=== PATIENT | male | born 1980 | race Caucasian/White ===

== ENCOUNTER 2017-07-13 02:43 | Inpatient (IN) | payer MEDICAID ==
[~2017-07-13] VITALS: Ht 165.1 cm; Wt 103.0 kg
[2017-07-13 04:28] LABS: CALCIUM 8.7 mg/dL (8.5-10.1); CARBON DIOXIDE 27.2 mmol/L (21-32); CHLORIDE SERUM 105 mmol/L (98-107); CREATININE SERUM 1.1 mg/dL (0.7-1.3); GFR1 > 60 mL/min; GLUCOSE SERUM 120 mg/dL (74-106); POTASSIUM SERUM 4.2 mmol/L (3.5-5.1); SODIUM SERUM 139 mmol/L (136-145)
[2017-07-13 04:32] LABS: BASOPHIL % 0.2 % (0-2); PLATELET COUNT 232 x10^3mcL (130-400)
[2017-07-13 06:06] LABS: T3 TOTAL 1.47 ng/mL
[2017-07-13 06:10] LABS: CHOLESTEROL/HDL RATIO 5.3; MAGNESIUM 2.1 mg/dL (1.8-2.4); PHOSPHOROUS 5.1 mg/dL (2.5-4.9)
[2017-07-13 06:46] VITALS: BP 141/91
[2017-07-13 07:10] LABS: FREE T4 1.1 ng/dL (0.76-1.46); FREE THYROXINE INDEX 2.9 ug/dL (1.4-4.5); T4(THYROXINE) 8.2 ug/dL (4.7-13.3)
[2017-07-13 08:23] LABS: UA SPECIFIC GRAVITY >=1.030 (1.005-1.035); microscopic required? YES; urine erythrocyte 3+ (NEGATIVE)
[2017-07-13 08:28] LABS: AMPHETAMINE QUAL UR NONE DETECTED (NEG <=1000)
[2017-07-13 09:41] VITALS: BP 131/85
[2017-07-13 14:12] VITALS: BP 127/81
[2017-07-13 14:27] VITALS: BP 149/95
[2017-07-13 17:33] VITALS: BP 125/80
[2017-07-13 21:00] VITALS: BP 141/84
[2017-07-14 06:11] LABS: BASOPHIL % 0.2 % (0-2); PLATELET COUNT 229 x10^3mcL (130-400); RED CELL DISTRIBUTION WIDTH 13.9 % (11.5-14.5)
[2017-07-14 06:37] LABS: CALCIUM 8.8 mg/dL (8.5-10.1); CARBON DIOXIDE 26.7 mmol/L (21-32); CHLORIDE SERUM 102 mmol/L (98-107); CREATININE SERUM 0.9 mg/dL (0.7-1.3); GFR1 > 60 mL/min; GLUCOSE SERUM 105 mg/dL (74-106); PHOSPHOROUS 4.1 mg/dL (2.5-4.9); SODIUM SERUM 138 mmol/L (136-145)
[2017-07-14 06:53] VITALS: BP 122/83
[2017-07-14 10:02] VITALS: BP 140/87
[2017-07-14 14:27] VITALS: BP 138/81
[2017-07-14 17:52] VITALS: BP 126/75
[2017-07-14 21:57] VITALS: BP 139/92
[2017-07-15 06:19] LABS: CALCIUM 8.7 mg/dL (8.5-10.1); CARBON DIOXIDE 28.2 mmol/L (21-32); CHLORIDE SERUM 104 mmol/L (98-107); CREATININE SERUM 0.9 mg/dL (0.7-1.3); GFR1 > 60 mL/min; GLUCOSE SERUM 95 mg/dL (74-106); POTASSIUM SERUM 4.2 mmol/L (3.5-5.1); SODIUM SERUM 138 mmol/L (136-145)
[2017-07-15 07:17] VITALS: BP 118/76
[2017-07-15 09:35] VITALS: BP 119/81
[2017-07-15 17:20] VITALS: BP 129/84
[2017-07-15 18:19] LABS: CALCIUM 9.1 mg/dL (8.5-10.1); CARBON DIOXIDE 27.5 mmol/L (21-32); CHLORIDE SERUM 104 mmol/L (98-107); CREATININE SERUM 0.9 mg/dL (0.7-1.3); GFR1 > 60 mL/min; GLUCOSE SERUM 117 mg/dL (74-106); POTASSIUM SERUM 4.2 mmol/L (3.5-5.1); SODIUM SERUM 139 mmol/L (136-145)
[2017-07-15 20:44] VITALS: BP 126/82
== END 2017-07-15 21:40 | disposition left against medical advice (07) | DRG 351 ==
LOC: ED 02:43 → MU 05:20 → DU 05:20 → MU 07-14 13:00
PROVIDERS: Emergency Medicine; Family Medicine; ADMIT Family Medicine Sports Medicine
DX: M62.82 Rhabdomyolysis (principal); N17.0 Acute kidney failure with tubular necrosis; R73.03 Prediabetes; R31.9 Hematuria, unspecified; E83.39 Other disorders of phosphorus metabolism; E02 Subclinical iodine-deficiency hypothyroidism; E78.5 Hyperlipidemia, unspecified; E66.9 Obesity, unspecified; Z68.37 Body mass index [BMI] 37.0-37.9, adult
CPT/HCPCS: 82962; 83880; 84439; J1885; J2270; J7030; Q0092